=== PATIENT | female | born 1985 | race Caucasian/White ===

== ENCOUNTER 2018-04-04 04:14 | Emergency (ER) | payer OTHER ==
[~2018-04-04] VITALS: Ht 170.2 cm; Wt 80.7 kg
[2018-04-04 04:20] VITALS: BP 135/80
== END 2018-04-04 05:05 | disposition home or self-care (01) ==
LOC: ER 04:24
DX: L03.031 Cellulitis of right toe (principal); D64.9 Anemia, unspecified; Z98.890 Other specified postprocedural states; Z88.8 Allergy status to other drugs, medicaments and biological substances
CPT/HCPCS: 99283; A4606; Z7610